=== PATIENT | female | born 1995 | race Caucasian/White ===

== ENCOUNTER 2024-07-22 11:02 | Emergency (ER) | payer MEDICAID ==
[~2024-07-22] VITALS: Ht 165.1 cm; Wt 60.0 kg
[2024-07-22 11:03] VITALS: BP 125/95; PULSE 74; RESP 18; TEMP 36.6; O2SAT 97
[2024-07-22] MEDS ORDERED: TOPUD PO (15:38)
== END 2024-07-22 11:57 | disposition left against medical advice (07) ==
LOC: ER 11:02
DX: M79.605 Pain in left leg (principal); R07.81 Pleurodynia; R10.9 Unspecified abdominal pain; V49.40XA Driver injured in collision with unspecified motor vehicles in traffic accident, initial encounter; Y92.410 Unspecified street and highway as the place of occurrence of the external cause; Y93.89 Activity, other specified; Y92.89 Other specified places as the place of occurrence of the external cause; Y99.8 Other external cause status
CPT/HCPCS: 99283; 99284

== ENCOUNTER 2024-07-22 13:56 | Emergency (ER) | payer MEDICAID ==
[~2024-07-22] VITALS: Ht 154.9 cm; Wt 86.0 kg
[2024-07-22 14:04] VITALS: O2SAT 98
[2024-07-22] MEDS: ACETAMINOPHEN 325MG TABLET PO ONE (15:02)
[2024-07-22] MEDS: IBUPROFEN 400MG TABLET PO ONE (15:12)
[2024-07-22] MEDS ORDERED: TOPUD PO (15:38)
[2024-07-22 15:49] VITALS: BP 131/78; PULSE 88; RESP 18; TEMP 36.7; O2SAT 99
== END 2024-07-22 15:50 | disposition home or self-care (01) ==
LOC: ER 13:56
DX: R07.81 Pleurodynia (principal)
CPT/HCPCS: 71101; 81025; 99284